=== PATIENT | female | born 2000 ===

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

== ENCOUNTER 2020-02-23 10:09 | Outpatient (CLI) | payer MEDICAID ==
[2020-02-23 10:30] VITALS: BP 130/69
[2020-02-23 12:30] LABS: Hematocrit 20.5 % (30.3-42.9); Hemoglobin 6.2 gm/dl (10.1-14.3); Mean Corpuscular HGB Conc 30 % (30-34); Platelet Count 337 K/mm3 (140-440); Red Blood Count 3.36 M/mm3 (3.65-5.03)
[2020-02-23 12:31] LABS: Mean Corpuscular Volume 61 fl (79-97)
== END 2020-02-23 13:37 | disposition home or self-care (01) ==
LOC: TRG 10:09 → APU 10:09 → TRG 13:37
PROVIDERS: ATTEND Obstetrics & Gynecology
DX: O26.893 Other specified pregnancy related conditions, third trimester (principal); R00.2 Palpitations; R06.02 Shortness of breath; Z3A.35 35 weeks gestation of pregnancy
CPT/HCPCS: 36415; 59025; 85027; 93005

== ENCOUNTER 2020-03-26 01:42 | Inpatient (IN) | payer MEDICAID ==
[2020-03-26] MEDS ORDERED: LACTATED RINGERS 1,000 ML IV ONE (02:22)
--- NOTE | 2020-03-26 04:32 | Ultrasound Report ---
Limited OB ultrasound INDICATION: Term FINDINGS: Based upon biparietal diameter, abdominal circumference, femur length and head circumferenc e calculated sonographic age is 38 weeks and 1 day. Amniotic fluid index is 5.9 cm. Placenta is located anteriorly. There is no sonographic evidence of a bruption. Estimated weight is 3262 g. heart rate is 162 bpm. BIOPHYSICAL PROFILE FINDINGS: breathing movement: 2/2 movement: 0/2 posture and tone: 0/2 Qualitative amniotic fluid volume: 2/2 IMPRESSION: Total score for biophysical profile is 4/8 heart rate is 162 bpm Results were relayed to the patient's nurse by the technologist at the time the exam was performed. Signer Name: Francisco Souza MD Signed: 03/26/2020 4:28 AM Workstation Name: [id number] [id number]
[2020-03-26] MEDS ORDERED: MINERAL OIL 30 ML ORAL LIQD PO PRN (04:51)
[2020-03-26] MEDS ORDERED: LIDOCAINE (2%) 20 MG/1 ML VIAL 20 ML MDV INFILTRATI ONE ×2 (04:51→20:28)
[2020-03-26] MEDS ORDERED: AMPICILLIN/NS 2 GM/100 ML 2 GM/100 ML BAG IV ONE (04:51)
[2020-03-26] MEDS ORDERED: ePHEDrine SULFATE 50 MG/1 ML INJ IV PRN ×2 (04:51→07:05)
[2020-03-26] MEDS ORDERED: TERBUTALINE 1 MG/1 ML INJ SUB-Q PRN (04:51)
--- NOTE | 2020-03-26 04:59 | History and Physical Report ---
History of Present Illness Date of examination: 03/26/20 Date of admission: 03/26/2020 Chief complaint: Contractions History of present illness: 19 year old presented to L&D complaining of contractions and found to be in early labor. Patient denies vaginal bleeding or leaking of fluid. BPP 4/8 in triage and low AARON 5.9 cm. US shows no sign of abruption. Patient was admitted for augmentation of labor. Patient states she received care at [facility] but records are not available. Patient denies any complications during this . EDC 03/23/2020 per patient report. US in triage showed EGA of 38 weeks, 1 day gestation. labs were drawn upon admission. Ultrasound ordered and BPP was found to be 4/8 and AARON was found to be low. Consulted MD who agrees with augmentation of labor. 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 denies: abnormal PAP smear, gonorrhea, hepatitis B, hepatitis C, herpes, HIV, syphilis, trichomonas Family/Genetic History: none Social history: lives with family, full code. denies: smoking, alcohol abuse, prescription drug abuse, IV drug use - Obstetrical History Expected Date of Delivery: 03/23/20 Actual Gestation: 40 Week(s) 3 Day(s) : 1 Para: 0 Hx # Term Pregnancies: 0 Number of Pregnancies: 0 Spontaneous Abortions: 0 Induced : 0 Number of Living Children: 0 Medications and Allergies Allergies Allergy/AdvReac Type Severity Reaction Status Date / Time No Known Allergies Allergy Unverified 09/16/19 17:02 Home Medications Medication Instructions Recorded Confirmed Last Taken Type Plus Tablet 1 tab PO QDAY 03/26/20 03/26/20 03/25/20 10:00 History Active Meds: Active Medications Ephedrine Sulfate (Ephedrine Sulfate 50 Mg/1 Ml Inj) 10 mg IV Q2M PRN PRN Reason: Hypotension Oxytocin/Sodium Chloride (Pitocin/Ns 30 Unit/500ml) 30 units in 500 mls @ 2 mls/hr IV TITR DEON; Protocol Lactated Ringer's (Lactated Ringers) 1,000 mls @ 125 mls/hr IV DIRECT DEON Oxytocin/Sodium Chloride (Pitocin/Ns 30 Unit/500ml) 30 units in 500 mls @ 40 mls/hr IV TITR DEON; Protocol Ampicillin Sodium (Ampicillin/Ns 2 Gm/100 Ml) 2 gm in 100 mls @ 100 mls/hr IV ONCE ONE; Protocol Stop: 03/26/20 05:50 Ampicillin Sodium (Ampicillin/Ns 1 Gm/50 Ml) 1 gm in 50 mls @ 100 mls/hr IV Q4H DEON; Protocol Lidocaine (Lidocaine (2%) 20 Mg/1 Ml Vial 20 Ml Mdv) 20 ml INFILTRATI ONCE ONE Stop: 03/26/20 04:52 Mineral Oil (Mineral Oil 30 Ml Oral Liqd) 30 ml PO QHS PRN PRN Reason: Constipation Terbutaline Sulfate (Terbutaline 1 Mg/1 Ml Inj) 0.25 mg SUB-Q ONCE PRN PRN Reason: Hyperstimulation/Hypertonicity Review of Systems All systems: negative (contractions) - Vital Signs Vital signs: Vital Signs Temp Pulse Resp BP Pulse Ox 98.7 F 83 18 136/89 99 03/26/20 01:51 03/26/20 01:51 03/26/20 01:51 03/26/20 01:51 03/26/20 01:51 Temp Pulse Resp BP Pulse Ox 98.7 F 85 18 136/89 100 03/26/20 01:51 03/26/20 04:54 03/26/20 01:51 03/26/20 02:03 03/26/20 04:54 - Physical Exam Abdomen: Positive: normal appearance, soft. Negative: tenderness, guarding, rigidity Genitourinary (Female): Positive: normal external genitalia, normal perenium. Negative: perineal/vulvar lesions Vagina: Positive: normal moisture Uterus: Positive: enlarged. Negative: tender Anus/Rectum: Positive: normal perianal skin Extremities: Positive: normal. Negative: tenderness, edema - Obstetrical FHR: category 1 Uterine Contraction Monitor Mode: External Cervical Dilatation: 2 (exam done in triage) Cervical Effacement Percentage: 80 station: -2 Uterine Contraction Pattern: Regular Uterine Contraction Intensity: Mild Results Result Diagrams: 03/26/20 04:58 All other labs normal. Assessment and Plan A: at 40 weeks, 3 days gestation. Early labor. Oligohydramnios. BPP 4/8. GBS unknown. P: Admit. Continuous EFM. GBS prophylaxis. Augmentation of labor with Pitocin. Consulted with Dr. Sow re: this patient; informed Dr. Sow of US results. Dr. Sow in agreement with POC.
[2020-03-26] MEDS ORDERED: OXYTOCIN DRIP 30 UNITS/500 ML BAG IV SCH ×2 (05:00)
[2020-03-26] MEDS ORDERED: fentaNYL 100 MCG/2 ML INJ IV ONE (05:59)
[2020-03-26 06:06] LABS: Hematocrit 30.5 % (30.3-42.9); Hemoglobin 9.4 gm/dl (10.1-14.3); Mean Corpuscular HGB Conc 31 % (30-34); Platelet Count 260 K/mm3 (140-440); Red Blood Count 4.36 M/mm3 (3.65-5.03)
[2020-03-26 06:23] LABS: Hepatitis C Virus Antibody Non-Reactive (NonReactive); Mean Corpuscular Volume 70 fl (79-97); Red Cell Distribution Width 32.1 % (13.2-15.2)
[2020-03-26] MEDS ORDERED: NALOXONE 2 MG/2 ML INJ IV PRN (07:05)
--- NOTE | 2020-03-26 07:05 | Anesthesia Consultation ---
Anesthesia Consult and Med Hx Date of service: 03/26/20 - Airway Anesthetic Teeth Evaluation: Good ROM Head & Neck: Adequate Mental/Hyoid Distance: Adequate Mallampati Class: Class II Intubation Access Assessment: Probably Good - Pulmonary Exam CTA: Yes - Cardiac Exam Cardiac Exam: RRR - Pre-Operative Health Status ASA Pre-Surgery Classification: ASA2 Proposed Anesthetic Plan: Epidural - Pulmonary Hx Smoking: No Hx Asthma: No Hx Respiratory Symptoms: No SOB: No COPD: No Home Oxygen Therapy: No Hx Pneumonia: No Hx Sleep Apnea: No - Cardiovascular System Hx Hypertension: No Hx Coronary Artery Disease: No Hx Heart Attack/AMI: No Hx Angina: No Hx Percutaneous Transluminal Coronary Angioplasty (PTCA): No Hx Cardia Arrhythmia: No Hx Pacemaker: No Hx Internal Defibrillator: No Hx Valvular Heart Disease: No Hx Heart Murmur: No Hx Peripheral Vascular Disease: No - Central Nervous System Hx Neuromuscular Disorder: No Hx Seizures: No CVA: No Hx Back Pain: No Hx Psychiatric Problems: No - Gastrointestinal Hx Ulcer: No Hx Gastroesophageal Reflux Disease: No - Endocrine Hx Renal Disease: No Hx End Stage Renal Disease: No Hx Cirrhosis: No Hx Liver Disease: No Hx Insulin Dependent Diabetes: No Hx Non-Insulin Dependent Diabetes: No Hx Thyroid Disease: No Hx Hypothyroidism: No Hx Hyperthyroidism: No - Hematic Hx Anemia: Yes (transfused 03/10/2020) Hx Sickle Cell Disease: No - Other Systems Hx Alcohol Use: No Hx Substance Use: No Hx Cancer: No Hx Obesity: No
--- NOTE | 2020-03-26 07:10 | Progress Note ---
Labor Epidural - Labor Epidural Start Time: 07:23 Stop Time: 07:33 Performed by:: ATIYA BLANC Procedure: Patient is requesting a laboring epidural for laboring pain. Patient IDed, H&P reviewed, all questions and concerns were answered, and consent was signed. Timeout was performed at bedside. Patient in sitting position. Sterile prep and drape was performed. 3ml of 1% lidocaine skin wheal at L[3]- L [4]. 18- gauge Tuohy epidural needle was advanced to loss of resistance with air technique 7cm. Negative CSF negative blood. Epidural catheter advanced to [10] centimeters. [negative] Aspiration [negative] test dose. Sterile dressing applied. Patient tolerated procedure Gwendolyn Douglas, SRNA
[2020-03-26] MEDS: LACTATED RINGERS 1,000 ML IV SCH ×2 (07:26→14:16)
[2020-03-26] MEDS: fentaNYL-BUPIV 2 MCG/ML-0.125% 200 MCG/100 ML BAG EPIDURAL SCH ×2 (08:10→16:10)
[2020-03-26 08:22] LABS: Bilirubin,Urine NEG (Negative); Blood,Urine MOD (Negative); Color,Urine Straw (Yellow); Protein,Urine <15 mg/dL mg/dL (Negative); Urobilinogen,Urine < 2.0 mg/dL (<2.0)
[2020-03-26 08:29] LABS: Amphetamine Screen,Urine Negative; Benzodiazepines Screen,Urine Negative; Cannabinoid Screen,Urine Negative; Cocaine Screen,Urine Negative; Methadone Screen,Urine Negative; Opiate Screen,Urine Negative
[2020-03-26] MEDS: AMPICILLIN/NS 1 GM/50 ML 1 GM/50 ML BAG IV SCH ×4 (08:40→20:46)
--- NOTE | 2020-03-26 10:26 | Event Note ---
Date: 03/26/20 SVE .
--- NOTE | 2020-03-26 14:22 | Event Note ---
Date: 03/26/20 SVE /-/BBOW.
--- NOTE | 2020-03-26 16:34 | Event Note ---
Date: 03/26/20 AROM at 16:04 clear fluid, small amount. Pitocin started for augmentation of labor. Cervix /1. Category 1 FHR tracing.
[2020-03-26] MEDS ORDERED: ACETAMINOPHEN 325 MG TAB PO ONE (21:38)
--- NOTE | 2020-03-26 21:43 | Event Note ---
Date: 03/26/20 Temp. 100.1. FHR baseline now 160-170 bpm. Tylenol, CMP, Ampicillin, and Gentamicin ordered.
[2020-03-26] MEDS ORDERED: GENTAMICIN 100 MG in SODIUM CHLORIDE 0.9% 100 ML IV SCH (21:45)
[2020-03-26] MEDS: GENTAMICIN/NS 100 MG/100 ML 100 MG/100 ML BAG IV SCH (22:10)
--- NOTE | 2020-03-26 23:01 | Event Note ---
Date: 03/26/20 Patient has been started on Gentamicin and Ampicillin and has been given Tylenol. Had low grade temp. elevation (100.1 orally). Maternal and tachycardia present; moderate FHR variability and accelerations present. Variable FHR decelerations with rapid return to baseline. Patient has been repositioned and has been pushing for 1 hour. Oxygen per face mask at 10 LPM. Patient has brought head down to +1 station with pushing. Pitocin being used to augment labor. Informed Dr. Sow at 9:54 PM of FHR tracing, diagnosis of probable chorioamnionitis, and interventions taken. Called Dr. Sow again at 10:50 and informed him of FHR tracing, station, and interventions taken; requested that Dr. Sow come in right away and expedite delivery. Dr. Sow states he is coming in to expedite delivery.
[2020-03-26] MEDS ORDERED: OXYTOCIN 10 UNIT/1 ML INJ ONE (23:37)
[2020-03-26] MEDS ORDERED: miSOPROStol 200 MCG TAB ONE (23:40)
[2020-03-26] MEDS ORDERED: fentaNYL 100 MCG/2 ML INJ ONE (23:52)
[2020-03-27] MEDS ORDERED: LANOLIN/ZINC/DIMETHICONE (LANSINOH) 7 GM TP PRN (00:26)
[2020-03-27] MEDS ORDERED: WITCH HAZEL/ GLYCERIN PAD TP PRN (00:26)
[2020-03-27] MEDS ORDERED: MAGNESIUM HYDROXIDE (MOM) ORAL LIQD UDC PO PRN (00:26)
--- NOTE | 2020-03-27 00:37 | Procedure Note ---
OB Delivery Note - Delivery Date of Delivery: 03/26/20 Surgeon: EFRAIN PEREZ Estimated blood loss: 200cc - Vaginal Delivery presentation: vertex Delivery position: OA Intrapartum events: extend. tachycardia, other(please specify) (probable chorioamnionitis) Delivery induction: none Delivery augmentation: rupture of membranes, pitocin Delivery monitor: external FHT, external uterine Route of delivery: Delivery placenta: spontaneous Delivery cord: nuchal cord (nuchal cord times 3), 3 umbilical vessels Delivery laceration: 2nd degree Delivery repair: vicryl Delivery comments: Spotaneous vaginal delivery at 23:37 of liveborn male infant weighing 6 lb. 12.5 oz. over 2nd degree perineal laceration with apgars of 7/8. of baby was atraumatic. Nuchal cord times 3, manually reduced. Baby placed skin to skin with mom immediately after delivery. Baby suctioned with bulb syringe and dried with warm towels. Spontaneous cry and respirations. 3 vessel cord double clamped and cut. Spontaneous delivery of intact placenta and membranes. Pitocin to IV fluids after delivery of placenta. Fundus firm and midline. Second degree perineal laceration repaired with 2-0 vicryl. No other lacerations noted. Vaginal sweep negative. Sponge count correct. Mother and baby stable.
[2020-03-27 01:05] LABS: Alanine Aminotransferase 6 units/L (7-56); Blood Urea Nitrogen 7 mg/dL (7-17); Hemolysis Index 4
[2020-03-27 01:13] LABS: BUN/Creatinine Ratio 10
[2020-03-27] MEDS: AMPICILLIN/NS 2 GM/100 ML 2 GM/100 ML BAG IV SCH ×3 (02:16→15:12)
[2020-03-27] MEDS: LACTATED RINGERS 1,000 ML IV SCH (02:16)
[2020-03-27] MEDS: IBUPROFEN 600 MG TAB PO SCH ×3 (02:17→17:49)
[2020-03-27] MEDS ORDERED: OXYTOCIN 10 UNIT/1 ML INJ IM ONE (02:33)
[2020-03-27] MEDS ORDERED: miSOPROStol 200 MCG TAB PR ONE (02:33)
[2020-03-27] MEDS ORDERED: fentaNYL 100 MCG/2 ML INJ IV ONE (02:35)
[2020-03-27] MEDS: GENTAMICIN/NS 100 MG/100 ML 100 MG/100 ML BAG IV SCH ×2 (05:43→14:22)
--- NOTE | 2020-03-27 07:20 | Post Anesthesia Evaluation ---
- Post Anesthesia Evaluation Patient Participated: Yes Airway Patent: Yes Stable Respiratory Function: Yes Nausea/Vomiting: No Temp > 96.8F: Yes Pain Manageable: Yes Adequeate Hydration: Yes Anesthesia Complications: No Block Receding Appropriately: Yes Patient on Ventilator: No
[2020-03-27] MEDS: DOCUSATE SODIUM 100 MG CAP PO SCH ×2 (10:12→22:26)
--- NOTE | 2020-03-27 12:10 | Progress Note ---
Assessment and Plan A: day 1 S/P . Anemia. P: Continue Ampicillin and Gentamicin until 11 PM tonight, then discontinue if patient remains afebrile. Encouraged patient to ambulate. Supplement with iron. Subjective - Subjective Date of service: 03/27/20 Principal diagnosis: day 1 S/P Interval history: day 1 S/P . Doing well. Patient reports: appetite normal, voiding normally, pain well controlled, flatus, ambulating normally, no dizzy ambulation, no nauseated [place]: doing well Objective - Vital Signs Latest vital signs: Vital Signs Temp Pulse Resp BP BP Pulse Ox 03/27/20 08:48 98.2 F 87 18 111/64 99 03/27/20 04:00 98.4 F 82 18 130/73 96 03/27/20 03:39 117 H 99 03/27/20 03:34 86 97 03/27/20 03:29 83 125/70 97 03/27/20 03:24 85 95 03/27/20 03:19 90 96 03/27/20 03:14 88 115/64 96 03/27/20 03:09 89 96 03/27/20 03:04 92 H 96 03/27/20 02:59 93 H 114/62 96 03/27/20 02:54 88 95 03/27/20 02:49 91 H 96 03/27/20 02:44 88 114/65 96 03/27/20 02:39 92 H 95 03/27/20 02:34 87 95 03/27/20 02:29 91 H 111/58 95 03/27/20 02:24 89 96 03/27/20 02:19 93 H 96 03/27/20 02:14 93 H 112/57 03/27/20 01:50 91 H 98 03/27/20 01:45 105 H 99 03/27/20 01:44 98 H 114/61 03/27/20 01:40 93 H 98 03/27/20 01:35 111 H 99 03/27/20 01:30 97 H 98 03/27/20 01:29 110 H 117/64 03/27/20 01:25 120 H 98 03/27/20 01:20 124 H 98 03/27/20 01:15 100 H 98 03/27/20 01:14 105 H 117/59 03/27/20 01:10 98 H 99 03/27/20 01:05 97 H 98 03/27/20 01:00 91 H 99 03/27/20 00:59 88 133/63 03/27/20 00:55 120 H 99 03/27/20 00:50 139 H 98 03/27/20 00:45 135 H 98 03/27/20 00:44 146 H 130/96 03/27/20 00:40 99 H 98 03/27/20 00:35 107 H 99 03/27/20 00:30 106 H 98 03/27/20 00:29 109 H 123/71 03/27/20 00:25 110 H 99 03/27/20 00:20 103 H 98 03/27/20 00:15 104 H 99 03/27/20 00:14 115 H 120/60 03/27/20 00:10 103 H 99 03/27/20 00:05 112 H 99 03/27/20 00:00 108 H 128/60 99 03/26/20 23:55 115 H 99 03/26/20 23:50 124 H 99 03/26/20 23:45 119 H 100 03/26/20 23:40 121 H 99 03/26/20 23:35 128 H 100 03/26/20 23:30 138 H 99 03/26/20 23:25 116 H 96 03/26/20 23:20 137 H 100 03/26/20 23:15 110 H 97 03/26/20 23:10 117 H 100 03/26/20 23:05 112 H 99 03/26/20 23:01 90 87 03/26/20 23:00 118 H 100 03/26/20 22:55 122 H 100 03/26/20 22:50 126 H 100 03/26/20 22:45 134 H 100 03/26/20 22:40 130 H 100 03/26/20 22:35 111 H 100 03/26/20 22:30 113 H 100 03/26/20 22:25 116 H 100 03/26/20 22:20 101 H 100 03/26/20 22:15 98 H 100 03/26/20 22:14 91 03/26/20 22:10 104 H 97 03/26/20 22:09 119 H 89 03/26/20 22:05 116 H 100 03/26/20 22:00 114 H 91 03/26/20 21:55 128 H 100 03/26/20 21:50 128 H 100 03/26/20 21:45 127 H 100 03/26/20 21:40 100.1 F H 100 H 99 03/26/20 21:37 107 H 106/68 03/26/20 21:35 102 H 100 03/26/20 21:30 90 100 03/26/20 21:25 90 99 03/26/20 21:21 74 119/58 03/26/20 21:20 78 100 03/26/20 21:15 78 99 03/26/20 21:10 73 99 03/26/20 21:07 77 112/59 03/26/20 21:05 78 100 03/26/20 21:00 77 100 03/26/20 20:55 79 99 03/26/20 20:51 87 98/55 03/26/20 20:50 72 99 03/26/20 20:45 113 H 99 03/26/20 20:40 98 H 100 03/26/20 20:35 104 H 100 03/26/20 20:30 121 H 99 03/26/20 20:25 74 100 03/26/20 20:22 67 115/55 03/26/20 20:20 77 99 03/26/20 20:15 76 100 03/26/20 20:10 104 H 98 03/26/20 20:07 77 132/60 03/26/20 20:05 84 100 03/26/20 20:00 90 100 03/26/20 19:55 111 H 99 03/26/20 19:51 75 130/71 03/26/20 19:50 78 100 03/26/20 19:45 86 99 03/26/20 19:41 99.8 F H 88 16 132/74 98 03/26/20 19:40 83 98 03/26/20 19:37 79 132/74 03/26/20 19:36 83 142/82 03/26/20 19:35 93 H 100 03/26/20 19:30 77 100 03/26/20 19:25 79 100 03/26/20 19:21 74 130/69 03/26/20 19:20 78 100 03/26/20 19:15 74 100 03/26/20 19:10 102 H 100 03/26/20 19:06 72 134/72 03/26/20 19:05 82 100 03/26/20 19:00 75 100 03/26/20 18:55 84 100 03/26/20 18:52 75 119/60 03/26/20 18:50 69 99 03/26/20 18:45 73 99 03/26/20 18:40 75 99 03/26/20 18:37 68 127/62 03/26/20 18:35 74 99 03/26/20 18:30 76 100 03/26/20 18:25 82 100 03/26/20 18:22 73 115/62 03/26/20 18:20 107 H 100 03/26/20 18:15 67 99 03/26/20 18:10 77 100 03/26/20 18:05 70 121/64 98 03/26/20 18:00 74 114/63 99 03/26/20 17:58 87 94 03/26/20 17:55 88 113/64 97 03/26/20 17:50 87 118/69 100 03/26/20 17:48 98 F 18 03/26/20 17:45 98 H 110/61 98 03/26/20 17:41 80 122/66 03/26/20 17:40 87 100 03/26/20 17:35 88 100 03/26/20 17:30 88 100 03/26/20 17:25 95 H 100 03/26/20 17:22 90 138/76 03/26/20 17:20 111 H 99 03/26/20 17:15 81 100 03/26/20 17:10 78 99 03/26/20 17:07 81 152/85 03/26/20 17:05 85 100 03/26/20 17:00 66 99 03/26/20 16:55 89 100 03/26/20 16:52 99 H 123/74 03/26/20 16:50 70 100 03/26/20 16:45 106 H 100 03/26/20 16:40 84 100 03/26/20 16:37 102 H 127/78 03/26/20 16:35 98 H 100 03/26/20 16:30 103 H 99 03/26/20 16:25 94 H 99 03/26/20 16:23 79 137/81 03/26/20 16:20 82 100 03/26/20 16:15 91 H 99 03/26/20 16:10 88 100 03/26/20 16:08 88 133/76 03/26/20 16:05 102 H 100 03/26/20 16:00 90 100 03/26/20 15:55 91 H 99 03/26/20 15:53 82 94/56 03/26/20 15:50 63 100 03/26/20 15:45 70 100 03/26/20 15:40 74 100 03/26/20 15:38 63 120/60 03/26/20 15:35 71 100 03/26/20 15:30 71 100 03/26/20 15:25 85 100 03/26/20 15:22 82 98/56 03/26/20 15:20 69 100 03/26/20 15:15 91 H 100 03/26/20 15:10 86 100 03/26/20 15:08 74 116/63 03/26/20 15:05 94 H 99 03/26/20 15:00 71 100 03/26/20 14:55 72 100 03/26/20 14:52 70 122/63 03/26/20 14:50 71 100 03/26/20 14:45 66 100 03/26/20 14:40 70 99 03/26/20 14:38 64 129/58 03/26/20 14:35 71 100 03/26/20 14:30 70 100 03/26/20 14:23 67 113/64 03/26/20 14:18 97.6 F 03/26/20 14:07 65 126/73 03/26/20 14:01 65 100 03/26/20 13:56 80 99 03/26/20 13:53 63 131/76 03/26/20 13:51 67 100 03/26/20 13:46 70 100 03/26/20 13:41 75 100 03/26/20 13:37 72 124/69 03/26/20 13:36 72 100 03/26/20 13:31 69 99 03/26/20 13:26 67 99 03/26/20 13:24 79 111/55 03/26/20 13:21 69 99 03/26/20 13:16 94 H 99 03/26/20 13:11 63 99 03/26/20 13:08 60 117/57 03/26/20 13:06 66 99 03/26/20 13:01 72 98 03/26/20 12:56 71 99 03/26/20 12:53 63 111/56 03/26/20 12:51 73 99 03/26/20 12:46 73 99 03/26/20 12:41 75 99 03/26/20 12:37 61 94/55 03/26/20 12:36 64 99 03/26/20 12:31 62 99 03/26/20 12:26 57 L 98 03/26/20 12:24 68 93/52 03/26/20 12:21 95 H 99 03/26/20 12:16 68 98 03/26/20 12:11 69 97 Intake and Output 03/26/20 03/27/20 03/27/20 23:59 07:59 15:59 Intake Total 1156.900 460 240 Output Total 600 850 Balance 556.900 -390 240 Intake: IV 1156.900 100 AMPICILLIN/NS 1 GM/50 ML 50 1 gm In 50 ml @ 100 mls/ hr IV Q4H [facility] Rx#: [id number] AMPICILLIN/NS 2 GM/100 ML 100 2 gm In 100 ml @ 100 mls /hr IV Q6HR [facility] Rx#: [id number] GENTAMICIN/NS 100 MG/100 100 ML 100 mg In 100 ml @ 133 .333 mls/hr IV Q8HR [facility] Rx#:[id number] Lactated Ringers 1,000 ml 1000 @ 125 mls/hr IV DIRECT [facility] Rx#:[id number] PITOCin/NS 30 UNIT/500ML 6.900 30 units In 500 ml @ 2 mls/hr IV TITR [facility] Rx#: [id number] Oral 240 Intake, Free Water 360 Output: Urine 600 850 Indwelling Catheter 600 Void 850 Other: Total, Intake Amount 240 Total, Output Amount 600 650 # Voids Void 1 Estimated Blood Loss 250 - Exam Abdomen: Present: normal appearance, soft. Absent: distention, tenderness, guarding, rigidity Uterus: Present: normal, firm, fundal height below umbilicus. Absent: bogginess, tenderness Extremities: Present: normal. Absent: tenderness, edema - Labs Labs: Abnormal lab results 03/27/20 Range/Units 00:22 Sodium 130 L (137-145) mmol/L Carbon Dioxide 15 L (22-30) mmol/L Glucose 120 H (65-100) mg/dL Calcium 8.0 L (8.4-10.2) mg/dL ALT 6 L (7-56) units/L Alkaline Phosphatase 204 H (35-129) units/L Total Protein 5.7 L (6.3-8.2) g/dL Albumin 3.0 L (3.9-5) g/dL
[2020-03-27] MEDS ORDERED: FERROUS SULFATE 325 MG TAB PO SCH (13:00)
[2020-03-27] MEDS: HYDROcodone/ACETAMINOPHEN 5-325 MG TAB PO PRN ×2 (14:58→22:26)
[2020-03-27 15:31] LABS: Hemoglobin 7.3 gm/dl (10.1-14.3)
[2020-03-27 15:35] LABS: Hematocrit 23.6 % (30.3-42.9)
[2020-03-27] MEDS ORDERED: BENZOCAINE/MENTHOL 20/0.5% TOP SPRAY 56 GM TP PRN (15:55)
[2020-03-27] MEDS: FERROUS SULFATE 325 MG TAB PO SCH (22:26)
[2020-03-28] MEDS: IBUPROFEN 600 MG TAB PO SCH ×4 (04:54→17:03)
[2020-03-28] MEDS: FERROUS SULFATE 325 MG TAB PO SCH ×2 (09:13→22:07)
[2020-03-28] MEDS: HYDROcodone/ACETAMINOPHEN 5-325 MG TAB PO PRN ×2 (09:13→22:07)
[2020-03-28] MEDS: DOCUSATE SODIUM 100 MG CAP PO SCH ×2 (09:13→22:07)
--- NOTE | 2020-03-28 09:50 | Progress Note ---
Assessment and Plan A: S/P Asymptomatic anemia P: Continue routine pp care D/C home tomm if stable Subjective - Subjective Date of service: 03/28/20 Principal diagnosis: day 1 S/P Patient reports: appetite normal, voiding normally, pain well controlled, ambulating normally [place]: doing well, bottle feeding Objective - Vital Signs Latest vital signs: Vital Signs Temp Pulse Resp BP BP Pulse Ox 03/28/20 08:00 97.3 F L 81 16 119/63 98 03/28/20 00:05 98.5 F 74 16 113/67 99 03/27/20 16:45 98.6 F 82 18 110/65 99 03/27/20 12:00 98.4 F 84 18 128/70 98 Intake and Output 03/27/20 03/28/20 03/28/20 22:59 06:59 14:59 Intake Total 240 700 Output Total 3 Balance 240 697 Intake: Intake, Free Water 240 700 Output: Urine 3 Void 3 Other: Total, Output Amount 1 # Voids Void 2 - Exam Breasts: Present: normal Abdomen: Present: normal appearance, soft, normal bowel sounds Vulva: both: normal Uterus: Present: normal, firm, fundal height below umbilicus Extremities: Present: normal Incision: Present: normal, intact - Labs Labs: Abnormal lab results 03/27/20 Range/Units 15:14 Hgb 7.3 L (10.1-14.3) gm/dl Hct 23.6 L D (30.3-42.9) %
[2020-03-28 16:14] LABS: Hematocrit 24.7 % (30.3-42.9); Hemoglobin 7.7 gm/dl (10.1-14.3); Mean Corpuscular HGB Conc 31 % (30-34); Mean Corpuscular Volume 72 fl (79-97); Platelet Count 238 K/mm3 (140-440); Red Blood Count 3.42 M/mm3 (3.65-5.03)
[2020-03-28 16:16] LABS: Red Cell Distribution Width 34.2 % (13.2-15.2)
[2020-03-28 16:37] LABS: Alanine Aminotransferase 10 units/L (7-56); Blood Urea Nitrogen 9 mg/dL (7-17); Calcium 8.4 mg/dL (8.4-10.2); Hemolysis Index 30
[2020-03-28 16:38] LABS: BUN/Creatinine Ratio 18
[2020-03-28 20:18] LABS: Hypochromasia 1+; Total Cells Counted 100
[2020-03-28 20:19] LABS: Anisocytosis 3+; Ovalocytes Rare; Tear Drop Cells Rare
[2020-03-28 20:20] LABS: Large Platelets Rare; Platelet Estimate Cons
[2020-03-29] MEDS: IBUPROFEN 600 MG TAB PO SCH ×3 (05:26→13:13)
[2020-03-29] MEDS: DOCUSATE SODIUM 100 MG CAP PO SCH (09:00)
[2020-03-29] MEDS: FERROUS SULFATE 325 MG TAB PO SCH (09:00)
--- NOTE | 2020-03-29 10:33 | Discharge Summary ---
Providers - Providers Date of Admission: 03/26/20 04:51 Date of discharge: 03/29/20 Attending physician: SVITLANA DIAZ Primary care physician: SVITLANA DIAZ Hospitalization Reason for admission: active labor Delivery: Episiotomy: none Laceration: 2nd degree (healing as expected) Other procedures: none complications: none Discharge diagnosis: IUP at term delivered, other (anemia) [place] baby: male Hospital course: See admission H & P; OB delivery summary and PP progress notes Condition at discharge: Stable Disposition: DC-01 TO HOME OR SELFCARE - Discharge Diagnoses (1) Status post normal vaginal delivery Status: Acute (2) Anemia Status: Acute Qualifiers: Anemia type: iron deficiency Comment: Asymptomatic Plan - Discharge Medications Prescriptions: Docusate Sodium [Colace CAP] 100 mg PO BID 30 Days #60 capsule - Provider Discharge Summary Activity: routine, no sex for 6 weeks, no heavy lifting 4 weeks, no strenuous exercise Diet: other (Iron rich diet) Instructions: routine Additional instructions: [] Smoking cessation referral if applicable(refer to patient education folder for contact #) [] Refer to [facility] Booklet Call your doctor immediately for: * Fever > 100.5 * Heavy vaginal bleeding ( >1 pad per hour) * Severe persistent headache * Shortness of breath * Reddened, hot, painful area to leg or breast * Drainage or odor from incision. * Keep laceration site clean and dry at all times and follow doctor's instructions regarding bathing/showering * Continue daily oral iron supplementation as directed with OJ. Increase water intake and green leafy vegetables to prevent constipation - Follow up plan Follow up: SVITLANA DIAZ MD [Primary Care Provider] - 6 Weeks
[2020-03-29] MEDS ORDERED: IRON DEXTRAN COMPLEX 100 MG/2 ML INJ IM ONE (12:00)
[2020-03-29 15:53] VITALS: BP 123/70
== END 2020-03-29 20:20 | disposition home or self-care (01) | DRG 775 ==
LOC: TRG 01:42 → APU 01:43 → TRG 04:51 → LD 04:51 → OB 03-27 03:45
PROVIDERS: ADMIT Obstetrics & Gynecology; ATTEND Obstetrics & Gynecology
PROC: 3E0R3BZ Introduction of Anesthetic Agent into Spinal Canal, Percutaneous Approach (ICD-10-PCS; 2020-03-26)
PROC: 00HU33Z Insertion of Infusion Device into Spinal Canal, Percutaneous Approach (ICD-10-PCS; 2020-03-26)
PROC: 10E0XZZ Delivery of Products of Conception, External Approach (ICD-10-PCS; principal; 2020-03-27)
PROC: 0KQM0ZZ Repair Perineum Muscle, Open Approach (ICD-10-PCS; 2020-03-27)
DX: O41.03X0 Oligohydramnios, third trimester, not applicable or unspecified (principal); O48.0 Post-term pregnancy; Z3A.40 40 weeks gestation of pregnancy; Z37.0 Single live birth; O99.02 Anemia complicating childbirth; D64.9 Anemia, unspecified; O70.1 Second degree perineal laceration during delivery; Z20.822 Contact with and (suspected) exposure to COVID-19
CPT/HCPCS: 36415; 76815; 76819; 80053; 80307; 81001; 83036; 85007; 85014; 85018; 85025; 85027; 86592; 86706; 86762; 86803; 86850; 86900; 86901; 87806; 88307; G0378; J0290; J1580; J1750; J2590; J3010; J7120; U0003

== ENCOUNTER 2020-04-15 19:34 | Inpatient (IN) | payer MEDICAID ==
[2020-04-15] MEDS ORDERED: SODIUM CHLORIDE 0.9% 1000 ML IV SOLN IV ONE (20:28)
[2020-04-15] MEDS ORDERED: ACETAMINOPHEN 325 MG TAB PO PRN (20:28)
--- NOTE | 2020-04-15 20:30 | Event Note ---
ED Screening Note Date of service: 04/15/20 Time: 20:29 ED Screening Note: 19-year-old female presents status post vaginal delivery April 01 complaining of fever, chest pain, body ache, weakness and shakes Tachycardic, febrile febrile This initial assessment/diagnostic orders/clinical plan/treatment(s) is/are subject to change based on patients health status, clinical progression and re- assessment by fellow clinical providers in the ED. Further treatment and workup at subsequent clinical providers discretion. Patient/guardian urged not to elope from the ED as their condition may be serious if not clinically assessed and managed. Initial orders include: christopher sepsis protocol
--- NOTE | 2020-04-15 20:48 | Emergency Department Report ---
ED Abdominal Pain HPI - General Chief Complaint: Fever Stated Complaint: FEVER; POSSIBLE UTI;WOUND CHECK PUI?: Yes Time Seen by Provider: 04/15/20 20:15 Source: patient Mode of arrival: Ambulatory Limitations: No Limitations - History of Present Illness Initial Comments: Patient is a 19-year-old female that presents emergency room with complaints of lower abdominal pain, vaginal pain, fever. Patient states that she had a vagi nal delivery on March 26, 2020. Patient states she had an episiotomy from the vaginal delivery. Patient states she still has a vaginal wound from her episiotomy. Patient states the stitches are still in place. Patient states she is not sure if there is an infection there or a discharge at the episiotomy site. Patient states the vaginal pain is radiating to her rectum patient states she still having some vaginal bleeding. Patient states she is having some nausea and vomiting as well. Patient states her pain is a 10 out of 10. Patient states her pain is better with rest and worse with movement. Patient states she feels weak. Patient states she is breast-feeding. Patient denies recent travel. Patient denies recent international travel. Patient denies exposure to the novel coronavirus. Patient denies sick contacts. MD Complaint: abdominal pain Location: suprapubic Radiation: other (To vagina and rectum) Migration to: no migration Severity: severe Severity scale (0 -10): 10 - Related Data Home Medications Medication Instructions Recorded Confirmed Last Taken Plus Tablet 1 tab PO QDAY 03/26/20 03/26/20 03/25/20 10:00 Previous Rx's Medication Instructions Recorded Last Taken Type Docusate Sodium [Colace CAP] 100 mg PO BID 30 Days #60 capsule 03/29/20 Unknown Rx Ferrous Sulfate [Feosol 325 MG tab] 325 mg PO BID 30 Days #60 tablet 03/29/20 Unknown Rx Allergies Allergy/AdvReac Type Severity Reaction Status Date / Time No Known Allergies Allergy Verified 03/26/20 19:54 ED Review of Systems ROS: Stated complaint: FEVER; POSSIBLE UTI;WOUND CHECK Other details as noted in HPI Constitutional: chills, fever, malaise, weakness Eyes: denies: eye pain, eye discharge, vision change ENT: denies: ear pain, throat pain Respiratory: cough. denies: shortness of breath, wheezing Cardiovascular: chest pain. denies: palpitations Endocrine: no symptoms reported Gastrointestinal: abdominal pain, nausea, vomiting. denies: diarrhea Genitourinary: as per HPI. denies: urgency, dysuria, discharge Musculoskeletal: denies: back pain, joint swelling, arthralgia Skin: denies: rash, lesions Neurological: denies: headache, weakness, paresthesias Psychiatric: denies: anxiety, depression Hematological/Lymphatic: denies: easy bleeding, easy bruising ED Past Medical Hx - Past Medical History Previous Medical History?: Yes Hx Hypertension: No Hx Heart Attack/AMI: No Hx Congestive Heart Failure: No Hx Diabetes: No Hx Deep Vein Thrombosis: No Hx Liver Disease: No Hx Renal Disease: No Hx Sickle Cell Disease: No Hx Seizures: No Hx Asthma: No Hx COPD: No Hx HIV: No Additional medical history: Anemia - Surgical History Past Surgical History?: No Hx Pacemaker: No Hx Internal Defibrillator: No - Family History Family history: no significant - Social History Smoking Status: Never Smoker Substance Use Type: None - Medications Home Medications: Home Medications Medication Instructions Recorded Confirmed Last Taken Type Plus Tablet 1 tab PO QDAY 03/26/20 03/26/20 03/25/20 10:00 History Docusate Sodium [Colace CAP] 100 mg PO BID 30 Days #60 capsule 03/29/20 Unknown Rx Ferrous Sulfate [Feosol 325 MG tab] 325 mg PO BID 30 Days #60 tablet 03/29/20 Unknown Rx ED Physical Exam - General Limitations: No Limitations General appearance: alert, in no apparent distress - Head Head exam: Present: atraumatic, normocephalic - Eye Eye exam: Present: normal appearance, PERRL Pupils: Present: normal accommodation - ENT ENT exam: Present: mucous membranes dry - Neck Neck exam: Present: normal inspection - Respiratory Respiratory exam: Present: normal lung sounds bilaterally. Absent: respiratory distress - Cardiovascular Cardiovascular Exam: Present: regular rate, normal rhythm. Absent: systolic murmur, diastolic murmur, rubs, gallop - GI/Abdominal GI/Abdominal exam: Present: soft, tenderness (Suprapubic tenderness to palpation.), normal bowel sounds - Rectal Rectal exam: Present: normal inspection, normal rectal tone. Absent: tenderness - External exam: Present: normal external exam, lacerations (Episiotomy site examined and appears to be intact with no signs of infection.), other (A foul- smelling odor coming from the vaginal vault noted. Nurse Devora in the room during the entire exam.) - Extremities Exam Extremities exam: Present: normal inspection - Back Exam Back exam: Present: normal inspection - Neurological Exam Neurological exam: Present: alert, oriented X3 - Psychiatric Psychiatric exam: Present: normal affect, normal mood - Skin Skin exam: Present: warm, dry, intact, normal color. Absent: rash ED Course Vital Signs 04/15/20 04/15/20 04/16/20 20:12 21:06 00:02 Temperature 103.0 F H 99.4 F Pulse Rate 135 H 56 L Respiratory 20 18 16 Rate Blood Pressure 126/64 Blood Pressure 118/58 [Left] O2 Sat by Pulse 98 96 Oximetry - Reevaluation(s) Reevaluation #1: Patient continues nausea. Patient will be given Zofran. Patient connected to our panel monitor. Patient's heart rate is improving with fluids. 04/15/20 20:26 Reevaluation #2: Even after 8 mg of Zofran, the patient continues to have nausea and vomiting. Patient will be given Reglan. 04/15/20 21:07 Reevaluation #3: A pelvic and rectal exam were done. No speculum exam was done. The external genitalia is normal. Episiotomy site noted and shows no signs of infection. Sutures are still intact. Patient does not have any abnormal finding on rectal exam. Nurse Devora in the room during the entire exam. 04/15/20 21:41 Reevaluation #4: Patient states her pain is better. 04/15/20 22:53 Reevaluation #5: I discussed all results with patient. I discussed plan of care with patient. Patient agrees with plan of care and admission. Patient to be admitted to the hospitalist service. 04/16/20 01:03 - Consultations Consultation #1: I discussed case with Dr. Sow, MEDICAL ASSISTANT SECRETARY. Dr. Sow recommends admission to the medicine team since the patient is so critical and [employer]OW[employer] MECH[employer]IC will consult. 04/16/20 00:53 Consultation #2: Hospitalist consulted for admission. Hospitalist to admit patient. 04/16/20 01:02 ED Medical Decision Making - Lab Data Result diagrams: 04/15/20 20:36 04/15/20 20:36 - Radiology Data Radiology results: report reviewed, image reviewed interpreted by me: Chest x-ray: No pneumonia, no pneumothorax, no foreign body, no osseous findings, no acute findings CHEST 1 VIEW 04/15/2020 9:07 PM INDICATION / CLINICAL INFORMATION: pain. COMPARISON: None available. FINDINGS: SUPPORT DEVICES: None. HEART / MEDIASTINUM: No significant abnormality. LUNGS / PLEURA: No significant pulmonary or pleural abnormality. No pneumothorax. ADDITIONAL FINDINGS: No significant additional findings. IMPRESSION: 1. No acute findings. CT ABDOMEN AND PELVIS WITHOUT AND WITH CONTRAST INDICATION: Recent vaginal delivery, lower abd pain, fever. TECHNIQUE: Axial CT images were obtained through the abdomen and pelvis before and after 100 cc Omni [address] scans at this location are performed using CT dose reduction for ALARA by means of automated exposure control. COMPARISON: None available. FINDINGS: LOWER CHEST: No significant abnormality. LIVER: No significant abnormality. GALLBLADDER: No significant abnormality. BILE DUCTS: No significant abnormality. PANCREAS: No significant abnormality. SPLEEN: No significant abnormality. ADRENALS: No significant abnormality. RIGHT KIDNEY and URETER: Mild hydronephrosis LEFT KIDNEY and URETER: Mild hydronephrosis STOMACH and SMALL BOWEL: No significant abnormality. COLON: No significant abnormality. APPENDIX: No significant abnormality. PERITONEUM: No free fluid. No free air. No fluid collection. LYMPH NODES: No significant adenopathy. AORTA and ARTERIES: No significant abnormality. IVC and VEINS: No significant abnormality. URINARY BLADDER: No significant abnormality. REPRODUCTIVE ORGANS: No significant abnormality. ADDITIONAL FINDINGS: None. SKELETAL SYSTEM: No significant abnormality. IMPRESSION: 1. Mild bilateral hydronephrosis without visualized renal calculi or be secondary to extrinsic compression from the uterus. 2. No acute inflammatory process or bowel obstruction. 3. No CT evidence for endometritis. ULTRASOUND PELVIS INDICATION: fever, abd pain. recent vaginal delivery. TECHNIQUE: Transvaginal. Duplex Color Doppler used: Yes. COMPARISON: None available FINDINGS: Uterus: Present. Size: 13.5 x 5.9 x 6.8 cm. Endometrial complex: Poorly visualized, therefore not measured Mass lesions: None. Additional findings: None. Right Ovary --not visualized Left Ovary--not visualized Urinary Bladder: Normal. Free Fluid: None. Additional Findings: None. IMPRESSION: 1. Enlarged uterus. No sonographic evidence for retained products of conception 2. Neither ovary visualized. - Medical Decision Making Patient is a 19-year-old female that presents emergency room with complaints of abdominal pain, fever, weakness, vaginal rectal pain. Patient had a vaginal delivery 2 weeks prior to arrival. Patient states that she had to have an episiotomy and she received stitches. Patient states that her pain was severe. Patient found to be severely tachycardic and febrile. Patient given fluids and antibiotics and Tylenol early in her stay. Patient was also having problems with nausea and vomiting. Patient required 2 mg Zofran and 10 mg of Reglan. Prior to any diagnostic be done, a pelvic exam was done to check the episiotomy site. The episiotomy site did not show any signs of infection however a foul- smelling odor per the vagina. Patient had labs done which were essentially unremarkable patient's white count was normal. Patient's lactic acid was negative. Patient had a chest x-ray for the fever and was negative for acute finding. Patient had an abdominal CT for the fever and abdominal pain it was negative for acute findings of her bilateral hydronephrosis most likely secondary to a uterus. Patient then had a transvaginal ultrasound. The transvaginal ultrasound shows an enlarged uterus. Ultrasound does not show any retained products of conception. I then discussed this case with MEDICAL ASSISTANT SECRETARY, Dr. Sow and he states that he wants the patient to be admitted to the medicine service since the patient is so sick and he will consult. I discussed the case with the hospitalist. The hospitalist agrees to admit the patient. Patient admitted to the hospitalist service for further evaluation and treatment. - Differential Diagnosis UTI, sepsis, fever, tachycardia, URI, abd pain, rpc, endometrial-itis Critical Care Time: Yes Critical care time in (mins) excluding proc time.: 45 Critical care attestation.: If time is entered above; I have spent that time in minutes in the direct care of this critically ill patient, excluding procedure time. Critical Care Time: 45 minutes ED Disposition Clinical Impression: Tachycardia, SIRS (systemic inflammatory response syndrome), Endometritis Fever Qualifiers: Fever type: unspecified Qualified Code(s): R50.9 - Fever, unspecified Nausea & vomiting Qualifiers: Vomiting type: unspecified Vomiting Intractability: non-intractable Qualified Code(s): R11.2 - Nausea with vomiting, unspecified Abdominal pain Qualifiers: Abdominal location: lower abdomen, unspecified Qualified Code(s): R10.30 - Lower abdominal pain, unspecified Fatigue Qualifiers: Fatigue type: unspecified Qualified Code(s): R53.83 - Other fatigue UTI (urinary tract infection) Qualifiers: Urinary tract infection type: acute cystitis Hematuria presence: with hematuria Qualified Code(s): N30.01 - Acute cystitis with hematuria Sepsis Qualifiers: Sepsis type: sepsis due to unspecified organism Sepsis acute organ dysfunction status: without acute organ dysfunction Qualified Code(s): A41.9 - Sepsis, unspecified organism Disposition: 09 OP ADMIT IP TO THIS HOSP Is pt being admited?: Yes Does the pt Need Aspirin: No Condition: Critical Referrals: PRIMARY CARE, [Primary Care Provider] - 3-5 Days Time of Disposition: 00:33
[2020-04-15] MEDS ORDERED: PIPERACIL/TAZOBACTA 4.5/NS 100 4.5 GM/100 ML VIAL IV ONE (20:49)
[2020-04-15] MEDS ORDERED: ONDANSETRON 4 MG/2 ML INJ IV ONE (20:49)
[2020-04-15] MEDS ORDERED: HYDROmorphone 1 MG/1 ML INJ IV ONE (20:49)
[2020-04-15] MEDS ORDERED: SODIUM CHLORIDE 0.9% 1000 ML 1,000 ML IV ONE (20:52)
[2020-04-15 21:01] LABS: Hematocrit 35.8 % (30.3-42.9); Hemoglobin 11.6 gm/dl (10.1-14.3); Mean Corpuscular HGB Conc 33 % (30-34); Mean Corpuscular Volume 75 fl (79-97); Platelet Count 311 K/mm3 (140-440); Red Blood Count 4.76 M/mm3 (3.65-5.03)
[2020-04-15] MEDS ORDERED: METOCLOPRAMIDE 10 MG/2 ML INJ IV ONE (21:10)
[2020-04-15 21:17] LABS: Alanine Aminotransferase 11 units/L (7-56); Albumin 4.3 g/dL (3.9-5); Blood Urea Nitrogen 6 mg/dL (7-17); Calcium 9.1 mg/dL (8.4-10.2); Hemolysis Index 2
[2020-04-15 21:18] LABS: BUN/Creatinine Ratio 10
--- NOTE | 2020-04-15 21:19 | XRay Report ---
CHEST 1 VIEW 04/15/2020 9:07 PM INDICATION / CLINICAL INFORMATION: pain. COMPARISON: None available. FINDINGS: SUPPORT DEVICES: None. HEART / MEDIASTINUM: No significant abnormality. LUNGS / PLEURA: No significant pulmonary or pleural abnormality. No pneumothorax. ADDITIONAL FINDINGS: No significant additional findings. IMPRESSION: 1. No acute findings. Signer Name: Clark Saunders MD Signed: 04/15/2020 9:14 PM Workstation Name: [id number]
[2020-04-15] MEDS ORDERED: ACETAMINOPHEN 650 MG RECT SUPP PR ONE (21:58)
[2020-04-15] MEDS ORDERED: ACETAMINOPHEN 325 MG TAB PO ONE (22:23)
[2020-04-15 22:32] LABS: Total Cells Counted 100
[2020-04-15 22:33] LABS: Anisocytosis 3+; Hypochromasia 1+; Large Platelets Rare; Ovalocytes Rare; Tear Drop Cells Rare
--- NOTE | 2020-04-15 23:01 | Cat Scan Report ---
CT ABDOMEN AND PELVIS WITHOUT AND WITH CONTRAST INDICATION: Recent vaginal delivery, lower abd pain, fever. TECHNIQUE: Axial CT images were obtained through the abdomen and pelvis before and after 100 cc Omni 300 IV cont r[address]. All CT scans at this location are performed using CT dose reduction for ALARA by means of auto mated exposure control. COMPARISON: None available. FINDINGS: LOWER CHEST: No significant abnormality. LIVER: No significant abnormality. GALLBLADDER: No significant abnormality. BILE DUCTS: No significant abnormality. PANCREAS: No significant abnormality. SPLEEN: No significant abnormality. ADRENALS: No significant abnormality. RIGHT KIDNEY and URETER: Mild hydronephrosis LEFT KIDNEY and URETER: Mild hydronephrosis STOMACH and SMALL BOWEL: No significant abnormality. COLON: No significant abnormality. APPENDIX: No significant abnormality. PERITONEUM: No free fluid. No free air. No fluid collection. LYMPH NODES: No significant adenopathy. AORTA and ARTERIES: No significant abnormality. IVC and VEINS: No significant abnormality. URINARY BLADDER: No significant abnormality. REPRODUCTIVE ORGANS: No significant abnormality. ADDITIONAL FINDINGS: None. SKELETAL SYSTEM: No significant abnormality. IMPRESSION: 1. Mild bilateral hydronephrosis without visualized renal calculi or be secondary to extrinsic compre ssion from the uterus. 2. No acute inflammatory process or bowel obstruction. 3. No CT evidence for endometritis. Signer Name: Bayron Horne MD Signed: 04/15/2020 10:56 PM Workstation Name: [id number]
--- NOTE | 2020-04-16 00:01 | Ultrasound Report ---
ULTRASOUND PELVIS INDICATION: fever, abd pain. recent vaginal delivery. TECHNIQUE: Transvaginal. Duplex Color Doppler used: Yes. COMPARISON: None available FINDINGS: Uterus: Present. Size: 13.5 x 5.9 x 6.8 cm. Endometrial complex: Poorly visualized, therefore not measured Mass lesions: None. Additional findings: None. Right Ovary --not visualized Left Ovary--not visualized Urinary Bladder: Normal. Free Fluid: None. Additional Findings: None. IMPRESSION: 1. Enlarged uterus. No sonographic evidence for retained products of conception 2. Neither ovary visualized. Signer Name: Bayron Horne MD Signed: 04/15/2020 11:57 PM Workstation Name: [id number]
[2020-04-16 00:39] LABS: Bilirubin,Urine NEG (Negative); Blood,Urine MOD (Negative); Color,Urine Straw (Yellow); Protein,Urine <15 mg/dL mg/dL (Negative); Urobilinogen,Urine < 2.0 mg/dL (<2.0)
[2020-04-16 00:46] LABS: HCG Qualitative,Urine Negative (Negative)
[2020-04-16] MEDS ORDERED: VANCOMYCIN/NS 1 GM/250 ML 1 GM/250 ML BAG IV ONE (01:01)
[2020-04-16] MEDS ORDERED: ACETAMINOPHEN 325 MG TAB PO PRN (02:58)
[2020-04-16] MEDS ORDERED: HYDROmorphone 1 MG/1 ML INJ IV PRN (02:59)
[2020-04-16] MEDS ORDERED: VANCOMYCIN PHARMACY TO DOSE IV SCH (03:00)
[2020-04-16] MEDS ORDERED: ONDANSETRON 4 MG/2 ML INJ IV PRN (03:00)
[2020-04-16] MEDS ORDERED: PIPERACILLIN/TAZOBACTAM 3.375 3.375 GM/50 ML BAG IV SCH (03:00)
[2020-04-16] MEDS: SODIUM CHLORIDE 0.9% 1000 ML 1,000 ML IV SCH ×3 (04:24→18:27)
[2020-04-16] MEDS: PIPERACIL/TAZOBACTA 4.5/NS 100 4.5 GM/100 ML VIAL IV SCH ×2 (05:26→14:29)
--- NOTE | 2020-04-16 05:28 | History and Physical Report ---
History of Present Illness Date of examination: 04/16/20 Date of admission: 04/16/20 01:15 Chief complaint: Abdominal and vaginal pain and fever History of present illness: History of presenting illness, patient is a 19-year-old female who says she has been having lower abdominal pain and vaginal pain going on for a few days and associated with fever, nausea and vomiting. Patient also admitted to having vaginal discharge and bleeding and said that her vaginal pain extends back to the rectal area. Patient had vaginal delivery of bradycardia about 3 week s prior to presentation and said that she had a episiotomy with the stitches still in place. Past History Past Medical History: other (ANEMIA) Medications and Allergies Allergies Allergy/AdvReac Type Severity Reaction Status Date / Time No Known Allergies Allergy Verified 03/26/20 19:54 Home Medications Medication Instructions Recorded Confirmed Last Taken Type Plus Tablet 1 tab PO QDAY 03/26/20 04/16/20 03/25/20 10:00 History Docusate Sodium [Colace CAP] 100 mg PO BID 30 Days #60 capsule 03/29/20 04/16/20 Unknown Rx Ferrous Sulfate [Feosol 325 MG tab] 325 mg PO BID 30 Days #60 tablet 03/29/20 04/16/20 Unknown Rx Active Meds: Active Medications Acetaminophen (Acetaminophen 325 Mg Tab) 650 mg PO Q4H PRN PRN Reason: Fever >101 Hydromorphone HCl (Hydromorphone 1 Mg/1 Ml Inj) 1 mg IV Q4H PRN PRN Reason: Pain , Severe (7-10) Sodium Chloride (Nacl 0.9% 1000 Ml) 1,000 mls @ 125 mls/hr IV DIRECT DEON Last Admin: 04/16/20 04:24 Dose: 125 mls/hr Documented by: Piperacillin Sod/Tazobactam Sod (Zosyn/Ns 4.5gm/100ml) 4.5 gm in 100 mls @ 200 mls/hr IV Q8HR DEON; Protocol Vancomycin HCl (Vancomycin/Ns 1 Gm/250 Ml) 1 gm in 250 mls @ 166.667 mls/hr IV Q12H DEON Ondansetron HCl (Ondansetron 4 Mg/2 Ml Inj) 4 mg IV Q8H PRN PRN Reason: Nausea And Vomiting Review of Systems Constitutional: fever, weakness, no chills, no sweats, no night sweats, no anorexia, no fatigue, no malaise Eyes: bilateral: other (NO BILATERAL EYE SYMPTOMS) Ears, nose, mouth and throat: no ear pain Breasts: deferred Cardiovascular: no chest pain, no palpitations, no syncope, no lightheadedness, no shortness of breath Respiratory: no cough, no hemoptysis, no congestion, no wheezing, no pleurisy Gastrointestinal: abdominal pain, nausea, vomiting, no diarrhea, no constipation, no change in bowel habits, no hematemesis, no coffee ground emesis, no melena, no hematochezia Genitourinary Female: pelvic pain, vaginal discharge, abnormal vaginal bleeding, no flank pain, no menorrhagia, no dysuria, no urinary frequency, no urgency, no hematuria Rectal: pain Musculoskeletal: neck stiffness Integumentary: no rash, no pruritis, no redness, no sores, no wounds, no jaundice, no growths, no bullae, no dryness Neurological: no paralysis, no weakness, no parathesias, no numbness, no tingling, no seizures, no syncope, no tremors, no vertigo, no headaches, no migraines, no convulsions Psychiatric: no anxiety, no depression Endocrine: no polyuria, no nocturia, no excessive sweating Hematologic/Lymphatic: no easy bruising, no easy bleeding Exam - Constitutional Vitals: Temp Pulse Resp BP Pulse Ox 98.9 F 61 16 123/60 99 04/16/20 04:00 04/16/20 05:10 04/16/20 05:10 04/16/20 05:10 04/16/20 05:10 General appearance: Present: mild distress - EENT Eyes: Present: PERRL, EOM intact ENT: hearing intact, clear oral mucosa - Neck Neck: Present: supple, normal ROM - Respiratory Respiratory effort: normal - Cardiovascular Rhythm: regular Heart Sounds: Present: S1 & S2. Absent: gallop, systolic murmur, diastolic murmur, click - Extremities Extremities: no ischemia, No edema Peripheral Pulses: within normal limits - Abdominal General gastrointestinal: Present: soft, non-tender, non-distended. Absent: tender, distended, rigid, hepatomegaly, splenomegaly, mass Female genitourinary: Present: deferred - Rectal Rectal Exam: deferred - Integumentary Integumentary: Present: clear, warm, dry. Absent: erythema, jaundice, rash, clammy - Musculoskeletal Musculoskeletal: strength equal bilaterally - Psychiatric Psychiatric: appropriate mood/affect - Neurologic Neurologic: CNII-XII intact HEART Score - HEART Score Risk factors: No known risk factors Troponin: Troponin T < 0.010 ng/mL (0.00-0.029) 04/15/20 20:36 Troponin: < normal limit - Critical Actions Critical Actions: 0-3 pts:0.9-1.7%risk of adverse cardiac event.Candidate for discharge Results - Labs CBC & Chem 7: 04/15/20 20:36 04/15/20 20:36 Labs: Laboratory Last Values WBC 8.9 K/mm3 (4.5-11.0) 04/15/20 20:36 RBC 4.76 M/mm3 (3.65-5.03) 04/15/20 20:36 Hgb 11.6 gm/dl (10.1-14.3) 04/15/20 20:36 Hct 35.8 % (30.3-42.9) 04/15/20 20:36 MCV 75 fl (79-97) L 04/15/20 20:36 MCH 25 pg (28-32) L 04/15/20 20:36 MCHC 33 % (30-34) 04/15/20 20:36 RDW 30.0 % (13.2-15.2) H 04/15/20 20:36 Plt Count 311 K/mm3 (140-440) 04/15/20 20:36 Add Manual Diff Complete 04/15/20 20:36 Total Counted 100 04/15/20 20:36 Seg Neuts % (Manual) 80.0 % (40.0-70.0) H 04/15/20 20:36 Lymphocytes % (Manual) 15.0 % (13.4-35.0) 04/15/20 20:36 Monocytes % (Manual) 5.0 % (0.0-7.3) 04/15/20 20:36 Nucleated RBC % Not Reportable 04/15/20 20:36 Seg Neutrophils # Man 7.1 K/mm3 (1.8-7.7) 04/15/20 20:36 Band Neutrophils # 0.0 K/mm3 04/15/20 20:36 Lymphocytes # (Manual) 1.3 K/mm3 (1.2-5.4) 04/15/20 20:36 Abs React Lymphs (Man) 0.0 K/mm3 04/15/20 20:36 Monocytes # (Manual) 0.4 K/mm3 (0.0-0.8) 04/15/20 20:36 Eosinophils # (Manual) 0.0 K/mm3 (0.0-0.4) 04/15/20 20:36 Basophils # (Manual) 0.0 K/mm3 (0.0-0.1) 04/15/20 20:36 Metamyelocytes # 0.0 K/mm3 04/15/20 20:36 Myelocytes # 0.0 K/mm3 04/15/20 20:36 Promyelocytes # 0.0 K/mm3 04/15/20 20:36 Blast Cells # 0.0 K/mm3 04/15/20 20:36 WBC Morphology Not Reportable 04/15/20 20:36 Hypersegmented Neuts Not Reportable 04/15/20 20:36 Hyposegmented Neuts Not Reportable 04/15/20 20:36 Hypogranular Neuts Not Reportable 04/15/20 20:36 Smudge Cells Not Reportable 04/15/20 20:36 Toxic Granulation Not Reportable 04/15/20 20:36 Toxic Vacuolation Not Reportable 04/15/20 20:36 Dohle Bodies Not Reportable 04/15/20 20:36 Pelger-Huet Anomaly Not Reportable 04/15/20 20:36 Betsy Rods Not Reportable 04/15/20 20:36 Platelet Estimate Not Reportable 04/15/20 20:36 Clumped Platelets Not Reportable 04/15/20 20:36 Plt Clumps, EDTA Not Reportable 04/15/20 20:36 Large Platelets Rare 04/15/20 20:36 Giant Platelets Not Reportable 04/15/20 20:36 Platelet Satelliting Not Reportable 04/15/20 20:36 Plt Morphology Comment Not Reportable 04/15/20 20:36 RBC Morphology Not Reportable 04/15/20 20:36 Dimorphic RBCs Not Reportable 04/15/20 20:36 Polychromasia Not Reportable 04/15/20 20:36 Hypochromasia 1+ 04/15/20 20:36 Poikilocytosis Not Reportable 04/15/20 20:36 Anisocytosis 3+ 04/15/20 20:36 Microcytosis Few 04/15/20 20:36 Macrocytosis Not Reportable 04/15/20 20:36 Spherocytes Not Reportable 04/15/20 20:36 Pappenheimer Bodies Not Reportable 04/15/20 20:36 Sickle Cells Not Reportable 04/15/20 20:36 Target Cells Not Reportable 04/15/20 20:36 Tear Drop Cells Rare 04/15/20 20:36 Ovalocytes Rare 04/15/20 20:36 Helmet Cells Not Reportable 04/15/20 20:36 Eli-[place] Bodies Not Reportable 04/15/20 20:36 Little Neck Rings Not Reportable 04/15/20 20:36 [place] Cells Not Reportable 04/15/20 20:36 Bite Cells Not Reportable 04/15/20 20:36 Crenated Cell Not Reportable 04/15/20 20:36 Elliptocytes Not Reportable 04/15/20 20:36 Acanthocytes (Spur) Not Reportable 04/15/20 20:36 Rouleaux Not Reportable 04/15/20 20:36 Hemoglobin C Crystals Not Reportable 04/15/20 20:36 Schistocytes Not Reportable 04/15/20 20:36 Malaria parasites Not Reportable 04/15/20 20:36 Sedrick Bodies Not Reportable 04/15/20 20:36 Hem Pathologist Commnt No 04/15/20 20:36 Sodium 131 mmol/L (137-145) L 04/15/20 20:36 Potassium 4.1 mmol/L (3.6-5.0) 04/15/20 20:36 Chloride 97.6 mmol/L (98-107) L 04/15/20 20:36 Carbon Dioxide 22 mmol/L (22-30) 04/15/20 20:36 Anion Gap 16 mmol/L 04/15/20 20:36 BUN 6 mg/dL (7-17) L 04/15/20 20:36 Creatinine 0.6 mg/dL (0.6-1.2) 04/15/20 20:36 Estimated GFR > 60 ml/min 04/15/20 20:36 BUN/Creatinine Ratio 10 % 04/15/20 20:36 Glucose 104 mg/dL (65-100) H 04/15/20 20:36 Lactic Acid 0.60 mmol/L (0.7-2.0) L 04/15/20 23:48 Calcium 9.1 mg/dL (8.4-10.2) 04/15/20 20:36 Total Bilirubin 0.60 mg/dL (0.1-1.2) 04/15/20 20:36 AST 16 units/L (5-40) 04/15/20 20:36 ALT 11 units/L (7-56) 04/15/20 20:36 Alkaline Phosphatase 123 units/L (35-129) 04/15/20 20:36 Troponin T < 0.010 ng/mL (0.00-0.029) 04/15/20 20:36 Total Protein 7.9 g/dL (6.3-8.2) 04/15/20 20:36 Albumin 4.3 g/dL (3.9-5) 04/15/20 20:36 Albumin/Globulin Ratio 1.2 % 04/15/20 20:36 Urine Color Straw (Yellow) 04/16/20 00:12 Urine Turbidity Clear (Clear) 04/16/20 00:12 Urine pH 6.0 (5.0-7.0) 04/16/20 00:12 Ur Specific [place] 1.021 (1.003-1.030) 04/16/20 00:12 Urine Protein <15 mg/dl mg/dL (Negative) 04/16/20 00:12 Urine Glucose (UA) Neg mg/dL (Negative) 04/16/20 00:12 Urine Ketones Neg mg/dL (Negative) 04/16/20 00:12 Urine Blood Mod (Negative) 04/16/20 00:12 Urine Nitrite Neg (Negative) 04/16/20 00:12 Urine Bilirubin Neg (Negative) 04/16/20 00:12 Urine Urobilinogen < 2.0 mg/dL (<2.0) 04/16/20 00:12 Ur Leukocyte Esterase Sm (Negative) 04/16/20 00:12 Urine WBC (Auto) 5.0 /HPF (0.0-6.0) 04/16/20 00:12 Urine RBC (Auto) 24.0 /HPF (0.0-6.0) 04/16/20 00:12 Urine HCG, Qual Negative (Negative) 04/16/20 00:12 Microbiology: Microbiology 04/15/20 20:36 Peripheral/Venous Blood Culture - Preliminary Culture in Progress 04/15/20 20:42 Peripheral/Venous Blood Culture - Preliminary Culture in Progress Assessment and Plan - Patient Problems (1) Vaginitis Current Visit: Yes Status: Acute Plan to address problem: 1. I.V ZOSYN ANTIBIOTICS 2. I.V VANCOMYCIN ANTIBIOTICS 3. I.V DILUDID FOR PAIN 4. GYNECOLOGY CONSULT (2) Sepsis Current Visit: Yes Status: Acute Qualifiers: Sepsis type: sepsis due to unspecified organism Sepsis acute organ dysfunction status: without acute organ dysfunction Qualified Code(s): A41.9 - Sepsis, unspecified organism Plan to address problem: 1. I.V NORMAL SALINE MAINTENANCE 2. I.V ZOSYN ANTIBIOTICS 3. I.V VANCOMYCIN ANTIBIOTICS 4.
[2020-04-16 09:38] LABS: Blood Urea Nitrogen 4 mg/dL (7-17); Calcium 7.9 mg/dL (8.4-10.2); Hemolysis Index 0
[2020-04-16 09:44] LABS: BUN/Creatinine Ratio 7
[2020-04-16 09:45] LABS: Hematocrit 29.9 % (30.3-42.9); Mean Corpuscular HGB Conc 34 % (30-34); Mean Corpuscular Volume 76 fl (79-97); Red Blood Count 3.93 M/mm3 (3.65-5.03)
[2020-04-16 09:46] LABS: Eosinophils % (Auto) 0.3 % (0.0-4.3); Lymphocytes % (Auto) 22.4 % (13.4-35.0); Monocytes % (Auto) 8.5 % (0.0-7.3); Platelet Count 270 K/mm3 (140-440); Red Cell Distribution Width 29.4 % (13.2-15.2)
[2020-04-16 09:47] LABS: Basophils % (Auto) 0.4 % (0.0-1.8); Lymphocytes # (Auto) 1.5 K/mm3 (1.2-5.4); Monocytes # (Auto) 0.6 K/mm3 (0.0-0.8)
--- NOTE | 2020-04-16 11:54 | Event Note ---
Date: 04/16/20 Patient was seen and evaluated this morning, patient was admitted for pain in the vaginal area. Patient has vaginal episotomy recently. Patient had fever yesterday. No fever today and WBC is within normal limit. Patient is on empiric antibiotics. PROTECTIVE SIGNAL SUPERINTENDENT was consulted pending recommendation.
--- NOTE | 2020-04-16 12:14 | Consultation ---
History of Present Illness Consult date: 04/16/20 History of present illness: Patient is a 19-year-old G1, P1 now status post a spontaneous vaginal delivery 3 weeks ago. Her delivery was uncomplicated except that she was put on antibiotics for possible chorioamnionitis. She never had a fever over 100.3 though. Patient was sent home in stable condition. Patient noted some random pelvic cramping over the next several weeks which is to be expected status post vaginal delivery. But her low midline pelvic pain increase significantly about 3 days ago. She says she states she felt febrile around then as well. Patient did present to the hospital last night with this pelvic pain and fever and her temperature was 103. Patient also felt very weak and was tachycardic and she required significant fluid resuscitation in the ER to improve her vitals. As result patient taken to the ICU overnight. This morning her vitals are stable and patient notes that she feels much better than she did versus admission. She still has some pelvic pain low but much improved versus yesterday. Patient had imaging including a chest x-ray, abdominal CAT scan and a pelvic ultrasound and no obvious source of infection was noted. The ER doctor did note foul-smelling vaginal discharge as well at the time of admission. Patient is currently on Zosyn and vancomycin. 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 Social history: no significant social history - Obstetrical History : 1 Para: 1 Medications and Allergies Allergies Allergy/AdvReac Type Severity Reaction Status Date / Time No Known Allergies Allergy Verified 03/26/20 19:54 Home Medications Medication Instructions Recorded Confirmed Last Taken Type Plus Tablet 1 tab PO QDAY 03/26/20 04/16/20 03/25/20 10:00 History Docusate Sodium [Colace CAP] 100 mg PO BID 30 Days #60 capsule 03/29/20 04/16/20 Unknown Rx Ferrous Sulfate [Feosol 325 MG tab] 325 mg PO BID 30 Days #60 tablet 03/29/20 04/16/20 Unknown Rx Active Meds: Active Medications Acetaminophen (Acetaminophen 325 Mg Tab) 650 mg PO Q4H PRN PRN Reason: Fever >101 Hydromorphone HCl (Hydromorphone 1 Mg/1 Ml Inj) 1 mg IV Q4H PRN PRN Reason: Pain , Severe (7-10) Sodium Chloride (Nacl 0.9% 1000 Ml) 1,000 mls @ 125 mls/hr IV DIRECT DENO Last Admin: 04/16/20 04:24 Dose: 125 mls/hr Documented by: Piperacillin Sod/Tazobactam Sod (Zosyn/Ns 4.5gm/100ml) 4.5 gm in 100 mls @ 200 mls/hr IV Q8HR DEON; Protocol Last Admin: 04/16/20 05:26 Dose: 200 mls/hr Documented by: Vancomycin HCl (Vancomycin/Ns 1 Gm/250 Ml) 1 gm in 250 mls @ 166.667 mls/hr IV Q12H DEON Ondansetron HCl (Ondansetron 4 Mg/2 Ml Inj) 4 mg IV Q8H PRN PRN Reason: Nausea And Vomiting Review of Systems All systems: negative (Except HPI) - Vital Signs Vital signs: Vital Signs Temp Pulse Resp BP Pulse Ox 103.0 F H 135 H 20 126/64 98 04/15/20 20:12 04/15/20 20:12 04/15/20 20:12 04/15/20 20:12 04/15/20 20:12 Temp Pulse Resp BP Pulse Ox 98.1 F 62 16 145/79 100 04/16/20 08:00 04/16/20 12:00 04/16/20 12:00 04/16/20 12:00 04/16/20 12:00 - Physical Exam Abdomen: Positive: normal appearance, soft, tenderness (Positive low midline abdominal tenderness. No rebound or guarding noted) Vulva: both: normal (Episiotomy site healing well. No evidence of vulvar or vaginal abscess) Vagina: Positive: normal moisture Results Result Diagrams: 04/16/20 09:02 04/16/20 09:02 Abnormal lab results 04/15/20 04/15/20 04/15/20 Range/Units 20:36 20:36 23:48 Hgb (10.1-14.3) gm/dl Hct (30.3-42.9) % MCV 75 L (79-97) fl MCH 25 L (28-32) pg RDW 30.0 H (13.2-15.2) % [place] % (Auto) (0.0-7.3) % Seg Neuts % (Manual) 80.0 H (40.0-70.0) % Sodium 131 L (137-145) mmol/L Chloride 97.6 L (98-107) mmol/L Carbon Dioxide (22-30) mmol/L BUN 6 L (7-17) mg/dL Glucose 104 H (65-100) mg/dL Lactic Acid 0.60 L (0.7-2.0) mmol/L Calcium (8.4-10.2) mg/dL 04/16/20 04/16/20 Range/Units 09:02 09:02 Hgb 10.0 L (10.1-14.3) gm/dl Hct 29.9 L (30.3-42.9) % MCV 76 L (79-97) fl MCH 25 L (28-32) pg RDW 29.4 H (13.2-15.2) % [place] % (Auto) 8.5 H (0.0-7.3) % Seg Neuts % (Manual) (40.0-70.0) % Sodium (137-145) mmol/L Chloride 109.5 H (98-107) mmol/L Carbon Dioxide 21 L (22-30) mmol/L BUN 4 L (7-17) mg/dL Glucose 102 H (65-100) mg/dL Lactic Acid (0.7-2.0) mmol/L Calcium 7.9 L (8.4-10.2) mg/dL All other labs normal. Assessment and Plan - Patient Problems (1) Abdominal pain Current Visit: Yes Status: Acute Qualifiers: Abdominal location: lower abdomen, unspecified Qualified Code(s): R10.30 - Lower abdominal pain, unspecified (2) Endometritis Current Visit: Yes Status: Acute (3) Sepsis Current Visit: Yes Status: Acute Qualifiers: Sepsis type: sepsis due to unspecified organism Sepsis acute organ dysfunction status: without acute organ dysfunction Qualified Code(s): A41.9 - Sepsis, unspecified organism Plan to address problem: Patient has not had a fever since her admission temperature of 103. Would continue her current antibiotics until patient is afebrile for least 48 hours. Based on her history and the fact that her only area of pain is in the low mid abdomen, suspect that the patient does have endometritis, although it is rare for that to manifest 3 weeks after delivery. Typically once the patient is afebrile for 48 hours after treating with antibiotics for endometritis, no additional antibiotics are required including no additional p.o. antibiotics. If another source of infection is found or there are other concerns, then treat accordingly and continue management care per Medicine's recommendations. Feel free to call lifecycle DISABILITY SPECIALIST physician transactional attorney with any questions. Otherwise, assuming endometritis is the cause of her sepsis, patient can follow-up with us 1 week after discharge.
[2020-04-16] MEDS: VANCOMYCIN/NS 1 GM/250 ML 1 GM/250 ML BAG IV SCH (14:29)
[2020-04-17] MEDS: SODIUM CHLORIDE 0.9% 1000 ML 1,000 ML IV SCH (02:57)
[2020-04-17] MEDS: PIPERACIL/TAZOBACTA 4.5/NS 100 4.5 GM/100 ML VIAL IV SCH ×3 (03:00→14:25)
[2020-04-17] MEDS: VANCOMYCIN/NS 1 GM/250 ML 1 GM/250 ML BAG IV SCH ×2 (03:32→13:11)
[2020-04-17 05:38] LABS: Blood Urea Nitrogen 3 mg/dL (7-17); Calcium 8.3 mg/dL (8.4-10.2); Hemolysis Index 0
[2020-04-17 06:07] LABS: BUN/Creatinine Ratio 6
--- NOTE | 2020-04-17 09:07 | Progress Note ---
Assessment and Plan Assessment and plan: Lower abdominal and vaginal pain -Pain control -Evaluated by [employer] CONSULTANT and recommend to continue with current antibiotics -Discharge once she is fever free for 48 hours, 48 hours would be tonight -No antibiotics needed Fever -Only one episode, no criteria for sepsis -Continue with current antibiotics -No further fever Disposition; if no further fever later this afternoon, patient can go home, no antibiotics needed. History Interval history: Patient was seen and evaluated this morning Patient does not have any fever overnight, no leukocytosis Patient states she is doing well and wants to go home Hospitalist Physical - Physical exam Narrative exam: Not in cardiopulmonary distress. The patient appeared well nourished and normally developed. Vital signs as documented. Head exam is unremarkable. No scleral icterus . Neck is without jugular venous distension, thyromegaly, or carotid bruits. Lungs are clear to auscultation. Cardiac exam reveals regular rate and Rhythm. Abdominal exam reveals normal bowel sounds, nontender, no organomegaly. Extremities are nonedematous and both femoral and pedal pulses are normal. CYLINDER DYER: Alert and oriented 3. No focal weakness. - Constitutional Vitals: Temp Pulse Resp BP Pulse Ox 98.0 F 70 18 116/56 100 04/17/20 08:19 04/17/20 08:19 04/17/20 08:19 04/17/20 08:19 04/17/20 08:19 General appearance: Present: mild distress HEART Score - HEART Score Risk factors: No known risk factors Troponin: Troponin T < 0.010 ng/mL (0.00-0.029) 04/15/20 20:36 Troponin: < normal limit - Critical Actions Critical Actions: 0-3 pts:0.9-1.7%risk of adverse cardiac event.Candidate for discharge Results - Labs CBC & Chem 7: 04/16/20 09:02 04/17/20 04:57 Labs: Laboratory Last Values WBC 6.9 K/mm3 (4.5-11.0) 04/16/20 09:02 RBC 3.93 M/mm3 (3.65-5.03) 04/16/20 09:02 Hgb 10.0 gm/dl (10.1-14.3) L 04/16/20 09:02 Hct 29.9 % (30.3-42.9) L 04/16/20 09:02 MCV 76 fl (79-97) L 04/16/20 09:02 MCH 25 pg (28-32) L 04/16/20 09:02 MCHC 34 % (30-34) 04/16/20 09:02 RDW 29.4 % (13.2-15.2) H 04/16/20 09:02 Plt Count 270 K/mm3 (140-440) 04/16/20 09:02 Lymph % (Auto) 22.4 % (13.4-35.0) 04/16/20 09:02 Bleckley % (Auto) 8.5 % (0.0-7.3) H 04/16/20 09:02 Eos % (Auto) 0.3 % (0.0-4.3) 04/16/20 09:02 Baso % (Auto) 0.4 % (0.0-1.8) 04/16/20 09:02 Lymph # (Auto) 1.5 K/mm3 (1.2-5.4) 04/16/20 09:02 Bleckley # (Auto) 0.6 K/mm3 (0.0-0.8) 04/16/20 09:02 Eos # (Auto) 0.0 K/mm3 (0.0-0.4) 04/16/20 09:02 Baso # (Auto) 0.0 K/mm3 (0.0-0.1) 04/16/20 09:02 Add Manual Diff Complete 04/15/20 20:36 Total Counted 100 04/15/20 20:36 Seg Neutrophils % 68.4 % (40.0-70.0) 04/16/20 09:02 Seg Neuts % (Manual) 80.0 % (40.0-70.0) H 04/15/20 20:36 Lymphocytes % (Manual) 15.0 % (13.4-35.0) 04/15/20 20:36 Monocytes % (Manual) 5.0 % (0.0-7.3) 04/15/20 20:36 Nucleated RBC % Not Reportable 04/15/20 20:36 Seg Neutrophils # 4.7 K/mm3 (1.8-7.7) 04/16/20 09:02 Seg Neutrophils # Man 7.1 K/mm3 (1.8-7.7) 04/15/20 20:36 Band Neutrophils # 0.0 K/mm3 04/15/20 20:36 Lymphocytes # (Manual) 1.3 K/mm3 (1.2-5.4) 04/15/20 20:36 Abs React Lymphs (Man) 0.0 K/mm3 04/15/20 20:36 Monocytes # (Manual) 0.4 K/mm3 (0.0-0.8) 04/15/20 20:36 Eosinophils # (Manual) 0.0 K/mm3 (0.0-0.4) 04/15/20 20:36 Basophils # (Manual) 0.0 K/mm3 (0.0-0.1) 04/15/20 20:36 Metamyelocytes # 0.0 K/mm3 04/15/20 20:36 Myelocytes # 0.0 K/mm3 04/15/20 20:36 Promyelocytes # 0.0 K/mm3 04/15/20 20:36 Blast Cells # 0.0 K/mm3 04/15/20 20:36 WBC Morphology Not Reportable 04/15/20 20:36 Hypersegmented Neuts Not Reportable 04/15/20 20:36 Hyposegmented Neuts Not Reportable 04/15/20 20:36 Hypogranular Neuts Not Reportable 04/15/20 20:36 Smudge Cells Not Reportable 04/15/20 20:36 Toxic Granulation Not Reportable 04/15/20 20:36 Toxic Vacuolation Not Reportable 04/15/20 20:36 Dohle Bodies Not Reportable 04/15/20 20:36 Pelger-Huet Anomaly Not Reportable 04/15/20 20:36 Betsy Rods Not Reportable 04/15/20 20:36 Platelet Estimate Not Reportable 04/15/20 20:36 Clumped Platelets Not Reportable 04/15/20 20:36 Plt Clumps, EDTA Not Reportable 04/15/20 20:36 Large Platelets Rare 04/15/20 20:36 Giant Platelets Not Reportable 04/15/20 20:36 Platelet Satelliting Not Reportable 04/15/20 20:36 Plt Morphology Comment Not Reportable 04/15/20 20:36 RBC Morphology Not Reportable 04/15/20 20:36 Dimorphic RBCs Not Reportable 04/15/20 20:36 Polychromasia Not Reportable 04/15/20 20:36 Hypochromasia 1+ 04/15/20 20:36 Poikilocytosis Not Reportable 04/15/20 20:36 Anisocytosis 3+ 04/15/20 20:36 Microcytosis Few 04/15/20 20:36 Macrocytosis Not Reportable 04/15/20 20:36 Spherocytes Not Reportable 04/15/20 20:36 Pappenheimer Bodies Not Reportable 04/15/20 20:36 Sickle Cells Not Reportable 04/15/20 20:36 Target Cells Not Reportable 04/15/20 20:36 Tear Drop Cells Rare 04/15/20 20:36 Ovalocytes Rare 04/15/20 20:36 Helmet Cells Not Reportable 04/15/20 20:36 Eli-Mescal Bodies Not Reportable 04/15/20 20:36 Madison Rings Not Reportable 04/15/20 20:36 João Cells Not Reportable 04/15/20 20:36 Bite Cells Not Reportable 04/15/20 20:36 Crenated Cell Not Reportable 04/15/20 20:36 Elliptocytes Not Reportable 04/15/20 20:36 Acanthocytes (Spur) Not Reportable 04/15/20 20:36 Rouleaux Not Reportable 04/15/20 20:36 Hemoglobin C Crystals Not Reportable 04/15/20 20:36 Schistocytes Not Reportable 04/15/20 20:36 Malaria parasites Not Reportable 04/15/20 20:36 Sedrick Bodies Not Reportable 04/15/20 20:36 Hem Pathologist Commnt No 04/15/20 20:36 Sodium 142 mmol/L (137-145) 04/17/20 04:57 Potassium 3.7 mmol/L (3.6-5.0) 04/17/20 04:57 Chloride 110.2 mmol/L (98-107) H 04/17/20 04:57 Carbon Dioxide 19 mmol/L (22-30) L 04/17/20 04:57 Anion Gap 17 mmol/L 04/17/20 04:57 BUN 3 mg/dL (7-17) L 04/17/20 04:57 Creatinine 0.5 mg/dL (0.6-1.2) L 04/17/20 04:57 Estimated GFR > 60 ml/min 04/17/20 04:57 BUN/Creatinine Ratio 6 % 04/17/20 04:57 Glucose 92 mg/dL (65-100) 04/17/20 04:57 Lactic Acid 0.60 mmol/L (0.7-2.0) L 04/15/20 23:48 Calcium 8.3 mg/dL (8.4-10.2) L 04/17/20 04:57 Total Bilirubin 0.60 mg/dL (0.1-1.2) 04/15/20 20:36 AST 16 units/L (5-40) 04/15/20 20:36 ALT 11 units/L (7-56) 04/15/20 20:36 Alkaline Phosphatase 123 units/L (35-129) 04/15/20 20:36 Troponin T < 0.010 ng/mL (0.00-0.029) 04/15/20 20:36 Total Protein 7.9 g/dL (6.3-8.2) 04/15/20 20:36 Albumin 4.3 g/dL (3.9-5) 04/15/20 20:36 Albumin/Globulin Ratio 1.2 % 04/15/20 20:36 Urine Color Straw (Yellow) 04/16/20 00:12 Urine Turbidity Clear (Clear) 04/16/20 00:12 Urine pH 6.0 (5.0-7.0) 04/16/20 00:12 Ur Specific Camp 1.021 (1.003-1.030) 04/16/20 00:12 Urine Protein <15 mg/dl mg/dL (Negative) 04/16/20 00:12 Urine Glucose (UA) Neg mg/dL (Negative) 04/16/20 00:12 Urine Ketones Neg mg/dL (Negative) 04/16/20 00:12 Urine Blood Mod (Negative) 04/16/20 00:12 Urine Nitrite Neg (Negative) 04/16/20 00:12 Urine Bilirubin Neg (Negative) 04/16/20 00:12 Urine Urobilinogen < 2.0 mg/dL (<2.0) 04/16/20 00:12 Ur Leukocyte Esterase Sm (Negative) 04/16/20 00:12 Urine WBC (Auto) 5.0 /HPF (0.0-6.0) 04/16/20 00:12 Urine RBC (Auto) 24.0 /HPF (0.0-6.0) 04/16/20 00:12 Urine HCG, Qual Negative (Negative) 04/16/20 00:12 Microbiology: Microbiology 04/15/20 20:36 Peripheral/Venous Blood Culture - Preliminary NO GROWTH AFTER 24 HOURS 04/15/20 20:42 Peripheral/Venous Blood Culture - Preliminary NO GROWTH AFTER 24 HOURS Active Medications - Current Medications Current Medications: Generic Name Dose Route Start Last Admin Trade Name Freq PRN Reason Stop Dose Admin Acetaminophen 650 mg 04/16/20 02:58 Acetaminophen 325 Mg Tab PO Q4H PRN Fever >101 Hydromorphone HCl 1 mg 04/16/20 02:59 Hydromorphone 1 Mg/1 Ml Inj IV Q4H PRN Pain , Severe (7-10) Sodium Chloride 1,000 mls @ 125 mls/hr 04/16/20 03:00 04/17/20 02:57 Nacl 0.9% 1000 Ml IV 125 mls/hr DIRECT DEON Administration Piperacillin Sod/Tazobactam Sod 4.5 gm in 100 mls @ 200 mls/hr 04/16/20 06:00 04/17/20 07:58 Zosyn/Ns 4.5gm/100ml IV 200 mls/hr Q8HR DEON Administration Protocol Vancomycin HCl 1 gm in 250 mls @ 166.667 mls/hr 04/16/20 14:00 04/17/20 03:32 Vancomycin/Ns 1 Gm/250 Ml IV 166.667 mls/hr Q12H DEON Administration Ondansetron HCl 4 mg 04/16/20 03:00 Ondansetron 4 Mg/2 Ml Inj IV Q8H PRN Nausea And Vomiting
--- NOTE | 2020-04-17 11:15 | Discharge Summary ---
Providers - Providers Date of Admission: 04/16/20 01:15 Date of discharge: 04/17/20 Attending physician: TAD CEE MD 04/16/20 00:54 Consult to Physician [CONS] Routine Comment: spoke to the doctor/ archna Consulting Provider: SVITLANA DIAZ Physician Instructions: Reason For Exam: fever Primary care physician: A[employer] PROGRAM DIRECTOR Hospitalization Reason for admission: vaginal pain, fever, SIRS Condition: Stable Hospital course: History of present illness: History of presenting illness, patient is a 19-year-old female who says she has been having lower abdominal pain and vaginal pain going on for a few days and associated with fever, nausea and vomiting. Patient also admitted to having vaginal discharge and bleeding and said that her vaginal pain extends back to the rectal area. Patient had vaginal delivery of bradycardia about 3 weeks prior to presentation and said that she had a episiotomy with the stitches still in place. Hospital course Lower abdominal and vaginal pain -Pain control -Evaluated by PUTTY AND CAULKING SUPERVISOR and recommend to continue with current antibiotics -Discharge once she is fever free for 48 hours -No antibiotics needed Fever -Only one episode, no criteria for sepsis -Continue with current antibiotics -No further fever Disposition; if no further fever later this afternoon, patient can go home, no antibiotics needed. Patient asks to go home early because she has a baby recently and wants to breast-feed. Patient was hemodynamically stable at the time of discharge. No medications are needed at the time of discharge. Management plan was discussed with the patient and was in agreement with the plan of care. Patient will follow with PUTTY AND CAULKING SUPERVISOR in 1 week in the office. Disposition: TO HOME OR SELFCARE Time spent for discharge: 32 minutes - Discharge Diagnoses (1) Abdominal pain Status: Acute Qualifiers: Abdominal location: lower abdomen, unspecified Qualified Code(s): R10.30 - Lower abdominal pain, unspecified (2) Endometritis Status: Suspected (3) Fever Status: Acute Qualifiers: Fever type: unspecified Qualified Code(s): R50.9 - Fever, unspecified (4) SIRS (systemic inflammatory response syndrome) Status: Acute Core Measure Documentation - Palliative Care Palliative Care/ Comfort Measures: Not Applicable - Core Measures Any of the following diagnoses?: none Exam - Physical Exam Narrative exam: Not in cardiopulmonary distress. The patient appeared well nourished and normally developed. Vital signs as documented. Head exam is unremarkable. No scleral icterus . Neck is without jugular venous distension, thyromegaly, or carotid bruits. Lungs are clear to auscultation. Cardiac exam reveals regular rate and Rhythm. Abdominal exam reveals normal bowel sounds, nontender, no organomegaly. Extremities are nonedematous and both femoral and pedal pulses are normal. BILL CUTTER: Alert and oriented 3. No focal weakness. - Constitutional Vitals: Temp Pulse Resp BP Pulse Ox 98.0 F 70 18 116/56 100 04/17/20 08:19 04/17/20 10:00 04/17/20 10:00 04/17/20 08:19 04/17/20 10:00 Plan Activity: no restrictions Weight Bearing Status: Full Weight Bearing Diet: regular Follow up with: GEETHA NG MD [Primary Care Provider] - 3-5 Days SVITLANA DIAZ MD [Staff Physician] - 7 Days
[2020-04-17 15:20] VITALS: BP 116/60
== END 2020-04-17 16:05 | disposition home or self-care (01) | DRG 776 ==
LOC: ED 19:34 → CC1 04-16 01:15 → 4A 04-16 16:22
PROVIDERS: ADMIT Internal Medicine; ATTEND Internal Medicine
DX: O86.12 Endometritis following delivery (principal); O86.13 Vaginitis following delivery; R65.10 Systemic inflammatory response syndrome (SIRS) of non-infectious origin without acute organ dysfunction; Z79.899 Other long term (current) drug therapy
CPT/HCPCS: 36415; 71045; 74178; 76830; 80048; 80053; 81001; 81025; 82140; 84484; 85007; 85025; 87040; 96365; G0378; J1170; J2405; J2543; J2765; J3370; J7030; Q9967